=== PATIENT | male | born 1960 | race Caucasian/White ===

== ENCOUNTER 2021-03-22 17:31 | Emergency (ER) | payer MEDICAID ==
[~2021-03-22] VITALS: Ht 177.8 cm; Wt 104.0 kg
[2021-03-22 17:58] LABS: BASOPHILS % 0.6 % (0.0-2.0); EOSINOPHILS % 1.3 % (0.0-5.0); HEMATOCRIT. 38.1 % (42.0-52.0); HEMOGLOBIN. 12.9 g/dL (14.0-18.0); LYMPHOCYTES % 34.6 % (20.0-50.0); MEAN CORPUSCULAR HEMOGLOBIN 28.4 pg (28.0-32.0); MONOCYTES % 7.9 % (2.0-8.0); NEUTROPHILS % 55.6 % (40.0-76.0); PLATELET 176 x1000/uL (130-400); RED BLOOD CELL COUNT 4.54 mill/uL (4.7-6.1); RED CELL DISTRIBUTION WIDTH 14.9 % (11.6-14.6)
[2021-03-22] MEDS ORDERED: LORAZEPAM 1MG TABLET PO ONE (18:00)
[2021-03-22] MEDS ORDERED: OLANZAPINE 5MG TABLET ODT PO ONE (18:00)
[2021-03-22 18:04] LABS: CHLORIDE 105 mEq/L (98-107)
[2021-03-22 18:08] LABS: ETHANOL BLOOD 161 mg/dL
[2021-03-22 21:48] LABS: CLARITY URINE CLEAR (CLEAR); COLOR URINE YELLOW (YELLOW); KETONES URINE NEGATIVE (NEGATIVE); LEUKOCYTE ESTERASE URINE NEGATIVE (NEGATIVE); NITRITE URINE NEGATIVE (NEGATIVE); OCCULT BLOOD URINE NEGATIVE (NEGATIVE); PH URINE 5.5 (4.5-8.0); PROTEIN URINE NEGATIVE (NEGATIVE)
[2021-03-22 22:05] LABS: *AMPHETAMINES SCREEN URINE PRESUMTIVE POSITIVE (NEGATIVE); *BARBITURATES SCREEN URINE NEGATIVE (NEGATIVE); CANNABINOID URINE SCREEN PRESUMTIVE POSITIVE (NEGATIVE)
[2021-03-22 22:07] LABS: *BENZODIAZEPINES SCREEN URINE NEGATIVE (NEGATIVE); *COCAINE SCREEN URINE NEGATIVE (NEGATIVE); METHADONE URINE SCREEN NEGATIVE (NEGATIVE); OPIATES URINE SCREEN NEGATIVE (NEGATIVE); PHENCYCLIDINE URINE SCREEN NEGATIVE (NEGATIVE)
[2021-03-23] MEDS ORDERED: SERTRALINE HCL 50MG TABLET PO SCH (15:15)
[2021-03-23 18:08] VITALS: BP 150/104
[2021-03-23] MEDS ORDERED: OLANZAPINE 5MG TABLET PO SCH (21:00)
[2021-03-23] MEDS ORDERED: MIRTAZAPINE 30MG TABLET PO SCH (21:00)
[2021-03-23] MEDS ORDERED: GABAPENTIN 300MG CAPSULE PO SCH (22:00)
== END 2021-03-23 19:23 ==
LOC: ER 17:31
DX: R45.851 Suicidal ideations (principal); R45.850 Homicidal ideations; F25.0 Schizoaffective disorder, bipolar type; Z91.14 Patient's other noncompliance with medication regimen; J98.01 Acute bronchospasm; Z20.822 Contact with and (suspected) exposure to COVID-19; F10.129 Alcohol abuse with intoxication, unspecified; Y90.6 Blood alcohol level of 120-199 mg/100 ml; R07.89 Other chest pain; R10.9 Unspecified abdominal pain; F15.10 Other stimulant abuse, uncomplicated; F12.90 Cannabis use, unspecified, uncomplicated
CPT/HCPCS: 36415; 80053; 80305; 80307; 80320; 80329; 81003; 85025; 93005; 99285; C9803; U0003; U0005; G0480

== ENCOUNTER 2021-04-03 21:48 | Emergency (ER) | payer MEDICAID ==
[~2021-04-03] VITALS: Ht 188 cm; Wt 105.0 kg
[2021-04-03 23:20] LABS: CLARITY URINE CLEAR (CLEAR); COLOR URINE YELLOW (YELLOW); KETONES URINE NEGATIVE (NEGATIVE); LEUKOCYTE ESTERASE URINE NEGATIVE (NEGATIVE); NITRITE URINE NEGATIVE (NEGATIVE); OCCULT BLOOD URINE NEGATIVE (NEGATIVE); PH URINE 6.5 (4.5-8.0); PROTEIN URINE NEGATIVE (NEGATIVE); SPECIFIC GRAVITY URINE 1.008 (1.005-1.030); UROBILINOGEN URINE 0.2 E.U./dL (0.2-1.0)
[2021-04-03 23:30] LABS: *BARBITURATES SCREEN URINE NEGATIVE (NEGATIVE); *BENZODIAZEPINES SCREEN URINE NEGATIVE (NEGATIVE); *COCAINE SCREEN URINE NEGATIVE (NEGATIVE); METHADONE URINE SCREEN NEGATIVE (NEGATIVE); OPIATES URINE SCREEN NEGATIVE (NEGATIVE)
[2021-04-03 23:31] LABS: *AMPHETAMINES SCREEN URINE NEGATIVE (NEGATIVE); CANNABINOID URINE SCREEN NEGATIVE (NEGATIVE); PHENCYCLIDINE URINE SCREEN NEGATIVE (NEGATIVE)
[2021-04-04 00:23] LABS: CHLORIDE 109 mEq/L (98-107)
[2021-04-04 00:25] LABS: BASOPHILS % 0.6 % (0.0-2.0); EOSINOPHILS % 1.3 % (0.0-5.0); HEMATOCRIT. 39.6 % (42.0-52.0); HEMOGLOBIN. 13.3 g/dL (14.0-18.0); LYMPHOCYTES % 32.9 % (20.0-50.0); MEAN CORPUSCULAR VOLUME 83.3 fL (80.0-94.0); MEAN PLATELET VOLUME 8.1 fl (7.4-10.4); MONOCYTES % 9.8 % (2.0-8.0); NEUTROPHILS % 55.4 % (40.0-76.0); PLATELET 187 x1000/uL (130-400); RED BLOOD CELL COUNT 4.76 mill/uL (4.7-6.1); RED CELL DISTRIBUTION WIDTH 15.4 % (11.6-14.6)
[2021-04-04 00:27] LABS: ETHANOL BLOOD < 10 mg/dL
[2021-04-04 07:02] VITALS: BP 160/98
[2021-04-04] MEDS ORDERED: OLANZAPINE 5MG TABLET PO SCH (10:30)
[2021-04-04] MEDS ORDERED: OLANZAPINE 10 MG/VIAL IM NR (11:45)
[2021-04-04] MEDS ORDERED: MIRTAZAPINE 15MG TABLET PO SCH (21:00)
[2021-04-05] MEDS ORDERED: OLANZAPINE 5MG TABLET PO SCH (09:00)
== END 2021-04-04 12:14 | disposition home or self-care (01) ==
LOC: ER 21:48
DX: R45.851 Suicidal ideations (principal); Z20.822 Contact with and (suspected) exposure to COVID-19
CPT/HCPCS: 36415; 80053; 80305; 80307; 80320; 80329; 81003; 85025; 87426; 99285; G0480